=== PATIENT | male | born 1955 | race Caucasian/White ===

== ENCOUNTER 2020-10-08 14:35 | Inpatient (IN) | payer OTHER ==
[2020-10-08] MEDS ORDERED: SODIUM CHLORIDE 2,517 ML IV ONE (15:57)
[2020-10-08 17:00] LABS: INR 0.99 (0.83-1.09); PROTHROMBIN TIME (PATIENT) 12.2 SEC (9.7-13.0)
[2020-10-08 17:04] LABS: ACTIVATED PTT 26.9 SECONDS (25.2-36.5)
[2020-10-08 17:08] LABS: BASO % 0.1 % (0-2.0); EOS % 0.1 % (0-4.5); HEMATOCRIT 49.7 % (35.4-49); HEMOGLOBIN 16.4 GM/dL (11.7-16.9); LYMPH % 16.7 % (8-40); MCH 29.6 pg (25.7-33.7); MCHC 32.9 g/dl (32.0-35.9); MEAN CELL VOLUME 89.8 fl (80-96); MEAN PLT VOLUME 9.8 fl (7.5-11.1); MONO % 17.4 % (3.8-10.2); NEUT % 65.7 % (42.8-82.8); PLATELET COUNT 292 K/MM3 (134-434); RBC 5.54 M/mm3 (4.00-5.60); RDW 14.5 % (11.9-15.9); WHITE BLOOD COUNT 7.3 K/mm3 (4.0-10.0)
[2020-10-08 17:09] LABS: CHLORIDE 95 mmol/L (98-107); SODIUM 130 mmol/L (136-145)
[2020-10-08 17:11] LABS: CALCIUM 9.1 mg/dL (8.5-10.1)
[2020-10-08 17:12] LABS: ALBUMIN 3.4 g/dl (3.4-5.0); ANION GAP 14 MMOL/L (8-16); BLOOD UREA NITROGEN 54.6 mg/dL (7-18); CO2 21 mmol/L (21-32); GLUCOSE,RANDOM 189 mg/dL (74-106)
[2020-10-08 17:15] LABS: CREATININE 3.4 mg/dL (0.55-1.3); SGOT/AST 61 U/L (15-37)
[2020-10-08 17:16] LABS: SGPT/ALT 106 U/L (13-61)
[2020-10-08 17:17] LABS: BILIRUBIN,TOTAL 0.4 mg/dL (0.2-1); TOT PROT 7.5 g/dl (6.4-8.2)
[2020-10-08 17:18] LABS: ALK PHOS 94 U/L (45-117)
[2020-10-08 17:26] LABS: LACTIC ACID 4.2 mmol/L (0.4-2.0)
[2020-10-08] MEDS ORDERED: ACETAMINOPHEN 1000 MG/100 ML VIAL (NON FORMULARY) IVPB ONE (17:50)
[2020-10-08] MEDS ORDERED: FAMOTIDINE 20 MG/50 ML IVPB 20 MG/50 ML MG IVPB ONE ×2 (17:50→19:00)
[2020-10-08] MEDS ORDERED: MAG HYDROX/AL HYDROX/SIMETH 30 ML UNIT-DOSE CUP PO ONE (17:50)
[2020-10-08 18:51] LABS: LACTIC ACID 2.7 mmol/L (0.4-2.0)
[2020-10-08] MEDS ORDERED: ACETAMINOPHEN INJECTION 100 ML IVPB ONE (19:00)
[2020-10-08 19:41] LABS: ANISOCYTOSIS 0; MACROCYTOSIS 0; PLATELET ESTIMATE NORMAL
[2020-10-08] MEDS ORDERED: SODIUM CHLORIDE 1,000 ML IV STA (19:47)
[2020-10-08] MEDS ORDERED: POTASSIUM CHLORIDE 30 MEQ in SODIUM CHLORIDE 1,000 ML IV SCH (23:00)
[2020-10-08] MEDS ORDERED: POTASSIUM CHLORIDE 40 MEQ in SODIUM CHLORIDE 1,000 ML IV SCH (23:00)
[2020-10-08] MEDS ORDERED: SODIUM CHLORIDE 1,000 ML IV SCH (23:00)
[2020-10-08 23:10] LABS: LIPASE 223 U/L (73-393); MAGNESIUM 2.7 mg/dL (1.8-2.4)
[2020-10-09] MEDS ORDERED: ACETAMINOPHEN 1000 MG/100 ML VIAL (NON FORMULARY) IVPB PRN (04:44)
[2020-10-09] MEDS ORDERED: SODIUM CHLORIDE 1,000 ML IV SCH (04:45)
[2020-10-09] MEDS ORDERED: SODIUM CHLORIDE 250 ML IV STA (04:47)
[2020-10-09] MEDS ORDERED: HEPARIN NA (PORCINE) 5,000 UNITS/ML 1ML VIAL ONE (06:20)
[2020-10-09 06:37] LABS: BASO % 0.2 % (0-2.0); EOS % 0.2 % (0-4.5); HEMATOCRIT 40.1 % (35.4-49); HEMOGLOBIN 13.5 GM/dL (11.7-16.9); LYMPH % 18.5 % (8-40); MCH 30.1 pg (25.7-33.7); MCHC 33.8 g/dl (32.0-35.9); MEAN PLT VOLUME 9.2 fl (7.5-11.1); MONO % 19.2 % (3.8-10.2); NEUT % 61.9 % (42.8-82.8); PLATELET COUNT 260 K/MM3 (134-434); RBC 4.51 M/mm3 (4.00-5.60); RDW 14.7 % (11.9-15.9); WHITE BLOOD COUNT 7.7 K/mm3 (4.0-10.0)
[2020-10-09] MEDS: HEPARIN NA (PORCINE) 5,000 UNITS/ML 1ML VIAL SQ SCH ×3 (06:38→21:02)
[2020-10-09 06:59] LABS: BLOOD UREA NITROGEN 72.8 mg/dL (7-18); MAGNESIUM 2.4 mg/dL (1.8-2.4)
[2020-10-09 07:03] LABS: PHOSPHOROUS 6.4 mg/dL (2.5-4.9)
[2020-10-09 07:04] LABS: BILIRUBIN,TOTAL 0.3 mg/dL (0.2-1); TOT PROT 5.9 g/dl (6.4-8.2)
[2020-10-09 07:06] LABS: CREATININE 3.5 mg/dL (0.55-1.3)
[2020-10-09 07:25] LABS: ALBUMIN 2.7 g/dl (3.4-5.0); CALCIUM 7.5 mg/dL (8.5-10.1)
[2020-10-09] MEDS: INSULIN SLIDING SCALE (NOVOLOG) 1 VIAL SQ SCH ×4 (07:27→22:35)
[2020-10-09 10:02] LABS: EPI CELLS >36 /uL (0-25.1); HYALINE CASTS 14 /uL (0-3.1); URINE APPEARANCE TURBID; URINE BACTERIA 91 /uL (0-1359); URINE BILIRUBIN NEGATIVE (NEGATIVE); URINE COLOR YELLOW; URINE GLUCOSE (UA) 2+ (NEGATIVE); URINE KETONE NEGATIVE (NEGATIVE); URINE LEUK ESTERASE TRACE (NEGATIVE); URINE NITRITE NEGATIVE (NEGATIVE); URINE PROTEIN 2+ (NEGATIVE); URINE RBC 19 /uL (0-23.9); URINE UROBILINOGEN 0.2 mg/dL (0.2-1.0); URINE WBC 117 /uL (0-25.8)
[2020-10-09] MEDS ORDERED: POTASSIUM CHLORIDE TABS 20 MEQ TABLET.ER (FP) PO ONE (10:09)
[2020-10-09] MEDS: POTASSIUM CHLORIDE TABS 20 MEQ TABLET.ER (FP) PO SCH ×2 (10:09→21:02)
[2020-10-09 10:59] LABS: PLATELET ESTIMATE NORMAL
[2020-10-09 14:33] LABS: CALCIUM 7.7 mg/dL (8.5-10.1)
[2020-10-09 14:34] LABS: BLOOD UREA NITROGEN 74.6 mg/dL (7-18)
[2020-10-09 14:37] LABS: CREATININE 3.9 mg/dL (0.55-1.3)
[2020-10-09] MEDS: SODIUM CHLORIDE 1,000 ML IV SCH (15:38)
[2020-10-09] MEDS: KCL 10 MEQ IVPB 10 MEQ/100 ML INFUS.BAG IVPB SCH ×2 (15:39→19:02)
[2020-10-09] MEDS: CALCIUM ACETATE 667 MG CAPSULE (FP) PO SCH (17:34)
[2020-10-09] MEDS: ATORVASTATIN CA 40 MG TABLET (FP) PO SCH (21:02)
[2020-10-10] MEDS: HEPARIN NA (PORCINE) 5,000 UNITS/ML 1ML VIAL SQ SCH ×3 (05:17→21:13)
[2020-10-10] MEDS: SODIUM CHLORIDE 1,000 ML IV SCH ×2 (05:19→14:34)
[2020-10-10] MEDS: INSULIN SLIDING SCALE (NOVOLOG) 1 VIAL SQ SCH ×4 (06:00→23:19)
[2020-10-10 08:04] LABS: ALBUMIN 2.7 g/dl (3.4-5.0); CALCIUM 7.8 mg/dL (8.5-10.1); MAGNESIUM 2.6 mg/dL (1.8-2.4)
[2020-10-10 08:08] LABS: CREATININE 4.4 mg/dL (0.55-1.3); PHOSPHOROUS 5.3 mg/dL (2.5-4.9)
[2020-10-10 08:09] LABS: BILIRUBIN,TOTAL 0.3 mg/dL (0.2-1); BLOOD UREA NITROGEN 81.4 mg/dL (7-18); TOT PROT 5.9 g/dl (6.4-8.2)
[2020-10-10] MEDS: CALCIUM ACETATE 667 MG CAPSULE (FP) PO SCH ×3 (09:04→17:06)
[2020-10-10] MEDS: POTASSIUM CHLORIDE TABS 20 MEQ TABLET.ER (FP) PO SCH ×2 (10:28→21:13)
[2020-10-10 10:35] LABS: BASO % 0.3 % (0-2.0); EOS % 0.4 % (0-4.5); HEMATOCRIT 40.2 % (35.4-49); HEMOGLOBIN 13.9 GM/dL (11.7-16.9); LYMPH % 15.4 % (8-40); MCH 30.7 pg (25.7-33.7); MCHC 34.4 g/dl (32.0-35.9); MEAN CELL VOLUME 89.1 fl (80-96); MEAN PLT VOLUME 9.2 fl (7.5-11.1); MONO % 15.6 % (3.8-10.2); NEUT % 68.3 % (42.8-82.8); PLATELET COUNT 283 K/MM3 (134-434); RBC 4.52 M/mm3 (4.00-5.60); RDW 14.6 % (11.9-15.9); WHITE BLOOD COUNT 9.4 K/mm3 (4.0-10.0)
[2020-10-10] MEDS ORDERED: LOPERAMIDE HCL 2 MG CAPSULE PO ONE (12:20)
[2020-10-10 12:39] LABS: ANISOCYTOSIS 0; MACROCYTOSIS 0; PLATELET ESTIMATE NORMAL
[2020-10-10 15:09] LABS: HEP B CORE AB, TOT Negative (Negative)
[2020-10-10] MEDS: SODIUM CHLORIDE 0.45%/POT 20 MEQ/1,000 ML INFUS.BAG IV SCH (18:13)
[2020-10-10] MEDS: SODIUM BICARBONATE 650 MG TABLET PO SCH ×2 (18:15→21:13)
[2020-10-10] MEDS ORDERED: LOPERAMIDE HCL 2 MG CAPSULE PO PRN (20:00)
[2020-10-10] MEDS: ATORVASTATIN CA 40 MG TABLET (FP) PO SCH (21:13)
[2020-10-11] MEDS: SODIUM CHLORIDE 0.45%/POT 20 MEQ/1,000 ML INFUS.BAG IV SCH ×3 (04:08→23:41)
[2020-10-11] MEDS: HEPARIN NA (PORCINE) 5,000 UNITS/ML 1ML VIAL SQ SCH ×3 (06:00→21:08)
[2020-10-11] MEDS: INSULIN SLIDING SCALE (NOVOLOG) 1 VIAL SQ SCH ×4 (06:01→21:09)
[2020-10-11 07:45] LABS: BASO % 0.3 % (0-2.0); EOS % 0.3 % (0-4.5); HEMATOCRIT 39.5 % (35.4-49); HEMOGLOBIN 13.4 GM/dL (11.7-16.9); LYMPH % 13.2 % (8-40); MCH 30.5 pg (25.7-33.7); MEAN CELL VOLUME 89.7 fl (80-96); MEAN PLT VOLUME 8.7 fl (7.5-11.1); MONO % 13.7 % (3.8-10.2); NEUT % 72.5 % (42.8-82.8); PLATELET COUNT 285 K/MM3 (134-434); RDW 14.3 % (11.9-15.9); WHITE BLOOD COUNT 10.6 K/mm3 (4.0-10.0)
[2020-10-11 08:16] LABS: CALCIUM 8.2 mg/dL (8.5-10.1)
[2020-10-11 08:17] LABS: ALBUMIN 2.6 g/dl (3.4-5.0); BLOOD UREA NITROGEN 78.5 mg/dL (7-18); MAGNESIUM 2.6 mg/dL (1.8-2.4)
[2020-10-11 08:20] LABS: CREATININE 3.7 mg/dL (0.55-1.3); PHOSPHOROUS 4.3 mg/dL (2.5-4.9)
[2020-10-11 08:21] LABS: BILIRUBIN,TOTAL 0.4 mg/dL (0.2-1); TOT PROT 5.8 g/dl (6.4-8.2)
[2020-10-11] MEDS: SODIUM BICARBONATE 650 MG TABLET PO SCH ×2 (09:18→21:08)
[2020-10-11] MEDS: CALCIUM ACETATE 667 MG CAPSULE (FP) PO SCH ×3 (09:18→17:37)
[2020-10-11] MEDS: POTASSIUM CHLORIDE TABS 20 MEQ TABLET.ER (FP) PO SCH ×2 (09:18→21:08)
[2020-10-11 11:12] LABS: ANISOCYTOSIS 0; MACROCYTOSIS 0; PLATELET ESTIMATE NORMAL
[2020-10-11 11:57] VITALS: BMI 35.1
[2020-10-11] MEDS: ATORVASTATIN CA 40 MG TABLET (FP) PO SCH (21:08)
[2020-10-12] MEDS: HEPARIN NA (PORCINE) 5,000 UNITS/ML 1ML VIAL SQ SCH ×3 (06:12→21:15)
[2020-10-12] MEDS: INSULIN SLIDING SCALE (NOVOLOG) 1 VIAL SQ SCH ×4 (06:12→21:15)
[2020-10-12 07:55] LABS: BASO % 0.3 % (0-2.0); EOS % 0.8 % (0-4.5); HEMATOCRIT 39.1 % (35.4-49); HEMOGLOBIN 13.1 GM/dL (11.7-16.9); MCH 29.9 pg (25.7-33.7); MCHC 33.6 g/dl (32.0-35.9); MEAN CELL VOLUME 89.1 fl (80-96); MEAN PLT VOLUME 8.7 fl (7.5-11.1); NEUT % 72.9 % (42.8-82.8); PLATELET COUNT 320 K/MM3 (134-434); RDW 14.7 % (11.9-15.9); WHITE BLOOD COUNT 13.4 K/mm3 (4.0-10.0)
[2020-10-12] MEDS: CALCIUM ACETATE 667 MG CAPSULE (FP) PO SCH ×3 (08:12→17:00)
[2020-10-12 08:23] LABS: CALCIUM 8.6 mg/dL (8.5-10.1)
[2020-10-12 08:24] LABS: ALBUMIN 2.7 g/dl (3.4-5.0); BLOOD UREA NITROGEN 64.2 mg/dL (7-18); MAGNESIUM 2.4 mg/dL (1.8-2.4)
[2020-10-12 08:27] LABS: CREATININE 2.7 mg/dL (0.55-1.3)
[2020-10-12 08:28] LABS: BILIRUBIN,TOTAL 0.4 mg/dL (0.2-1)
[2020-10-12] MEDS: SODIUM BICARBONATE 650 MG TABLET PO SCH ×2 (10:27→21:15)
[2020-10-12] MEDS: amLODIPine BESYLATE 5 MG TABLET (FP) PO SCH (10:27)
[2020-10-12] MEDS: POTASSIUM CHLORIDE TABS 20 MEQ TABLET.ER (FP) PO SCH ×2 (10:27→21:15)
[2020-10-12 10:40] LABS: ANISOCYTOSIS 1+; MACROCYTOSIS 0; PLATELET ESTIMATE NORMAL
[2020-10-12] MEDS: SODIUM CHLORIDE 0.45%/POT 20 MEQ/1,000 ML INFUS.BAG IV SCH ×2 (11:20→21:14)
[2020-10-12] MEDS: ATORVASTATIN CA 40 MG TABLET (FP) PO SCH (21:15)
[2020-10-13] MEDS: HEPARIN NA (PORCINE) 5,000 UNITS/ML 1ML VIAL SQ SCH (06:32)
[2020-10-13] MEDS: INSULIN SLIDING SCALE (NOVOLOG) 1 VIAL SQ SCH ×2 (06:32→11:57)
[2020-10-13 08:39] LABS: BASO % 0.3 % (0-2.0); EOS % 1.2 % (0-4.5); HEMATOCRIT 36.5 % (35.4-49); HEMOGLOBIN 12.3 GM/dL (11.7-16.9); LYMPH % 15.5 % (8-40); MCHC 33.7 g/dl (32.0-35.9); MEAN CELL VOLUME 88.9 fl (80-96); MEAN PLT VOLUME 8.9 fl (7.5-11.1); MONO % 11.5 % (3.8-10.2); NEUT % 71.5 % (42.8-82.8); PLATELET COUNT 327 K/MM3 (134-434); RDW 14.7 % (11.9-15.9); WHITE BLOOD COUNT 13.4 K/mm3 (4.0-10.0)
[2020-10-13 08:56] LABS: ALBUMIN 2.6 g/dl (3.4-5.0); BLOOD UREA NITROGEN 51.1 mg/dL (7-18); CALCIUM 8.6 mg/dL (8.5-10.1); MAGNESIUM 1.7 mg/dL (1.8-2.4)
[2020-10-13 08:59] LABS: CREATININE 1.9 mg/dL (0.55-1.3)
[2020-10-13 09:01] LABS: BILIRUBIN,TOTAL 0.3 mg/dL (0.2-1); TOT PROT 5.9 g/dl (6.4-8.2)
[2020-10-13] MEDS: CALCIUM ACETATE 667 MG CAPSULE (FP) PO SCH ×2 (09:05→12:28)
[2020-10-13] MEDS: POTASSIUM CHLORIDE TABS 20 MEQ TABLET.ER (FP) PO SCH (09:05)
[2020-10-13] MEDS: SODIUM BICARBONATE 650 MG TABLET PO SCH (09:05)
[2020-10-13] MEDS: amLODIPine BESYLATE 5 MG TABLET (FP) PO SCH (09:06)
[2020-10-13 09:57] LABS: ANISOCYTOSIS 1+; MACROCYTOSIS 0; PLATELET ESTIMATE NORMAL
[2020-10-13 12:52] LABS: CALCIUM 8.7 mg/dL (8.5-10.1)
[2020-10-13 12:53] LABS: BLOOD UREA NITROGEN 51.3 mg/dL (7-18)
[2020-10-13 12:56] LABS: CREATININE 1.7 mg/dL (0.55-1.3)
[2020-10-13 13:35] VITALS: BP 135/73; PULSE 78; TEMP 98.1
[2020-10-14 11:07] LABS: ANTIGLOMERULAR BASEMENT MEN.AB 3 units (0-20)
[2020-10-14 16:08] LABS: ATYPICAL pANCA <1:20 titer (Neg:<1:20); C-ANCA <1:20 titer (Neg:<1:20)
== END 2020-10-13 14:42 | disposition home or self-care (01) | DRG 391 ==
LOC: JER 14:35 → JERBED 17:45 → J7W 10-09 11:49
PROVIDERS: ADMIT Hospitalist; ATTEND Nurse Practitioner Acute Care
DX: A09 Infectious gastroenteritis and colitis, unspecified (principal); N17.0 Acute kidney failure with tubular necrosis; E87.1 Hypo-osmolality and hyponatremia; K56.7 Ileus, unspecified; E87.2 Acidosis; E86.0 Dehydration; R74.01 Elevation of levels of liver transaminase levels; E87.6 Hypokalemia; E11.9 Type 2 diabetes mellitus without complications; K44.9 Diaphragmatic hernia without obstruction or gangrene; E66.9 Obesity, unspecified; Z68.35 Body mass index [BMI] 35.0-35.9, adult; E78.5 Hyperlipidemia, unspecified; I10 Essential (primary) hypertension; I95.9 Hypotension, unspecified; E86.1 Hypovolemia; K76.0 Fatty (change of) liver, not elsewhere classified
CPT/HCPCS: 36415; 71045-TC-FY; 74176-TC; 76775-TC; 80048; 80053; 81003; 82272; 82540; 82550; 82553; 82570; 82962; 83036; 83516; 83520; 83605; 83690; 83735; 84100; 84300; 84484; 85025; 85610; 85651; 85730; 86038; 86140; 86160; 86225; 86256; 86704; 86706; 86707; 86708; 86709; 86769; 87040; 87045; 87046; 87086; 87186; 87205; 87324; 87340; 87449; 87798; 93005; 93010; 99285-25; C9803; J0131; J1644; J3480; U0003; U0005

== ENCOUNTER 2020-12-30 05:00 | Day surgery (SDC) | payer OTHER ==
[2020-12-27 17:57] VITALS: BMI 33.8
[2020-12-30 12:51] LABS: BASO % 0.8 % (0-2.0); EOS % 2.2 % (0-4.5); HEMATOCRIT 34.2 % (35.4-49); HEMOGLOBIN 11.2 GM/dL (11.7-16.9); LYMPH % 22.4 % (8-40); MCH 29.1 pg (25.7-33.7); MCHC 32.7 g/dl (32.0-35.9); MEAN CELL VOLUME 88.9 fl (80-96); MEAN PLT VOLUME 7.7 fl (7.5-11.1); MONO % 8.1 % (3.8-10.2); NEUT % 66.5 % (42.8-82.8); PLATELET COUNT 437 10^3/uL (134-434); RBC 3.85 M/mm3 (4.00-5.60); RDW 15.7 % (11.9-15.9); WHITE BLOOD COUNT 10.2 K/mm3 (4.0-10.0)
[2020-12-30 13:13] LABS: BLOOD UREA NITROGEN 20.2 mg/dL (7-18); CALCIUM 9.3 mg/dL (8.5-10.1)
[2020-12-30 13:16] LABS: CREATININE 0.9 mg/dL (0.55-1.3)
[2020-12-30] MEDS ORDERED: IOHEXOL 300 MG/ML INFUS..BTL IV ONE (14:58)
[2020-12-30] MEDS ORDERED: ONDANSETRON 4 MG/2 ML VIAL IVPUSH PRN (15:55)
[2020-12-30] MEDS ORDERED: oxyCODONE HCL 5 MG TABLET PO PRN (15:55)
[2020-12-30] MEDS ORDERED: LACTATED RINGERS SOLUTION 1,000 ML IV SCH (16:00)
[2020-12-30] MEDS ORDERED: MEPERIDINE HCL CARPU-JECT 25 MG/1 ML DISP.SYRIN IVPUSH ONE (16:07)
[2020-12-30] MEDS ORDERED: ACETAMINOPHEN 1000 MG/100 ML VIAL (NON FORMULARY) IVPB ONE (16:49)
[2020-12-30 19:31] VITALS: BP 138/78; PULSE 87; TEMP 97.2
== END 2020-12-30 19:24 | disposition home or self-care (01) ==
LOC: JASU-SURG 05:00
PROVIDERS: ATTEND Urology
PROC: 0TB68ZX Excision of Right Ureter, Via Natural or Artificial Opening Endoscopic, Diagnostic (ICD-10-PCS; principal; 2020-12-30 09:30)
PROC: 0T568ZZ Destruction of Right Ureter, Via Natural or Artificial Opening Endoscopic (ICD-10-PCS; 2020-12-30 09:30)
PROC: 0TBB8ZX Excision of Bladder, Via Natural or Artificial Opening Endoscopic, Diagnostic (ICD-10-PCS; 2020-12-30 09:30)
DX: C66.1 Malignant neoplasm of right ureter (principal); D09.0 Carcinoma in situ of bladder
CPT/HCPCS: 36415; 80048; 82962; 85025; 93005; 93010; 94760; J0131

== ENCOUNTER 2022-04-29 12:12 | Inpatient (IN) | payer MEDICARE, OTHER ==
[2022-04-29] MEDS ORDERED: ONDANSETRON 4 MG/2 ML VIAL IVPUSH ONE (16:46)
[2022-04-29] MEDS ORDERED: ONDANSETRON 4 MG/2 ML VIAL ONE (16:57)
[2022-04-29] MEDS ORDERED: SODIUM CHLORIDE 1,000 ML IV SCH (17:00)
[2022-04-29 17:20] LABS: BASO % 0.5 % (0-2.0); EOS % 2.1 % (0-4.5); HEMATOCRIT 45.2 % (35.4-49); HEMOGLOBIN 14.9 GM/dL (11.7-16.9); LYMPH % 22.2 % (8-40); MCH 29.7 pg (25.7-33.7); MCHC 32.9 g/dl (32.0-35.9); MEAN CELL VOLUME 90.4 fl (80-96); MEAN PLT VOLUME 8.5 fl (7.5-11.1); MONO % 8.4 % (3.8-10.2); NEUT % 66.8 % (42.8-82.8); PLATELET COUNT 321 10^3/uL (134-434); RDW 15.1 % (11.9-15.9); WHITE BLOOD COUNT 12.1 K/mm3 (4.0-10.0)
[2022-04-29 17:24] LABS: EPI CELLS 28 /uL (0-25.1); HYALINE CASTS 8 /uL (0-3.1); URINE APPEARANCE CLEAR; URINE BACTERIA 157 /uL (0-1359); URINE BILIRUBIN 1+ (NEGATIVE); URINE COLOR DK YELLOW; URINE GLUCOSE (UA) 2+ (NEGATIVE); URINE KETONE 1+ (NEGATIVE); URINE LEUK ESTERASE NEGATIVE (NEGATIVE); URINE NITRITE NEGATIVE (NEGATIVE); URINE PROTEIN 2+ (NEGATIVE); URINE RBC 19 /uL (0-23.9); URINE WBC 28 /uL (0-25.8)
[2022-04-29 17:41] LABS: CALCIUM 10.3 mg/dL (8.5-10.1)
[2022-04-29 17:42] LABS: ALBUMIN 4.4 g/dl (3.4-5.0); BLOOD UREA NITROGEN 30.1 mg/dL (7-18)
[2022-04-29 17:44] LABS: CREATININE 1.7 mg/dL (0.55-1.3)
[2022-04-29 17:46] LABS: BILIRUBIN,TOTAL 0.3 mg/dL (0.2-1); TOT PROT 8.2 g/dl (6.4-8.2)
[2022-04-30] MEDS ORDERED: SODIUM CHLORIDE 1,000 ML IV SCH (00:15)
[2022-04-30] MEDS ORDERED: CYCLOBENZAPRINE HCL 5 MG TABLET PO PRN (00:19)
[2022-04-30] MEDS ORDERED: LIDOCAINE HCL 2% JELLY 11 ML TP ONE (01:01)
[2022-04-30 02:36] VITALS: BMI 31.9
[2022-04-30] MEDS: LACTATED RINGERS SOLUTION 1,000 ML/1,000 ML INFUS.BAG IV SCH ×2 (03:01→13:34)
[2022-04-30] MEDS ORDERED: INSULIN (NOVOLOG) ASPART 100 UNITS/ML 10ML VIAL ONE (06:05)
[2022-04-30] MEDS: INSULIN SLIDING SCALE (NOVOLOG) 1 VIAL SQ SCH ×4 (06:14→21:33)
[2022-04-30] MEDS: HEPARIN NA (PORCINE) 5,000 UNITS/ML 1ML VIAL SQ SCH ×3 (09:42→21:33)
[2022-04-30] MEDS: TAMSULOSIN HCL 0.4 MG CAP PO SCH (09:43)
[2022-04-30] MEDS: LISINOPRIL 20 MG TABLET PO SCH (09:43)
[2022-04-30] MEDS: FINASTERIDE 5 MG TABLET (FP) PO SCH (09:43)
[2022-04-30 09:59] LABS: BASO % 0.5 % (0-2.0); EOS % 5.6 % (0-4.5); HEMATOCRIT 39.3 % (35.4-49); LYMPH % 31.5 % (8-40); MCH 30.3 pg (25.7-33.7); MCHC 33.1 g/dl (32.0-35.9); MEAN CELL VOLUME 91.4 fl (80-96); MEAN PLT VOLUME 8.6 fl (7.5-11.1); MONO % 7.3 % (3.8-10.2); NEUT % 55.1 % (42.8-82.8); PLATELET COUNT 263 10^3/uL (134-434); RDW 14.8 % (11.9-15.9); WHITE BLOOD COUNT 8.8 K/mm3 (4.0-10.0)
[2022-04-30] MEDS ORDERED: ENOXAPARIN NA (PORCINE) 40 MG/0.4 ML DISP.SYRIN SQ SCH (10:00)
[2022-04-30 10:19] LABS: BLOOD UREA NITROGEN 26.6 mg/dL (7-18)
[2022-04-30 10:20] LABS: ALBUMIN 3.7 g/dl (3.4-5.0); MAGNESIUM 2.1 mg/dL (1.8-2.4)
[2022-04-30 10:22] LABS: CREATININE 1.2 mg/dL (0.55-1.3); PHOSPHOROUS 3.2 mg/dL (2.5-4.9)
[2022-04-30 10:24] LABS: BILIRUBIN,TOTAL 0.3 mg/dL (0.2-1); TOT PROT 6.7 g/dl (6.4-8.2)
[2022-04-30 10:38] LABS: CALCIUM 8.7 mg/dL (8.5-10.1)
[2022-04-30] MEDS ORDERED: ACETAMINOPHEN 1000 MG/100 ML BAG IVPB PRN (16:45)
[2022-04-30] MEDS ORDERED: ATORVASTATIN CA 40 MG TABLET (FP) PO SCH (22:00)
[2022-04-30 22:01] VITALS: RESP 18
[2022-05-01] MEDS: LACTATED RINGERS SOLUTION 1,000 ML/1,000 ML INFUS.BAG IV SCH ×2 (01:11→02:30)
[2022-05-01] MEDS: HEPARIN NA (PORCINE) 5,000 UNITS/ML 1ML VIAL SQ SCH ×2 (06:30→15:04)
[2022-05-01] MEDS: INSULIN SLIDING SCALE (NOVOLOG) 1 VIAL SQ SCH ×3 (06:31→16:54)
[2022-05-01 09:02] LABS: BASO % 0.5 % (0-2.0); HEMATOCRIT 39.3 % (35.4-49); HEMOGLOBIN 13.2 GM/dL (11.7-16.9); LYMPH % 27.5 % (8-40); MCH 30.3 pg (25.7-33.7); MCHC 33.6 g/dl (32.0-35.9); MEAN CELL VOLUME 90.2 fl (80-96); MEAN PLT VOLUME 8.6 fl (7.5-11.1); MONO % 7.4 % (3.8-10.2); NEUT % 58.6 % (42.8-82.8); PLATELET COUNT 268 10^3/uL (134-434); RBC 4.35 M/mm3 (4.00-5.60); RDW 14.3 % (11.9-15.9); WHITE BLOOD COUNT 8.3 K/mm3 (4.0-10.0)
[2022-05-01 09:36] LABS: ALBUMIN 3.8 g/dl (3.4-5.0)
[2022-05-01 09:37] LABS: TOT PROT 6.8 g/dl (6.4-8.2)
[2022-05-01 09:39] LABS: BLOOD UREA NITROGEN 13.4 mg/dL (7-18)
[2022-05-01 09:43] LABS: CALCIUM 9.1 mg/dL (8.5-10.1)
[2022-05-01 09:44] LABS: MAGNESIUM 2.2 mg/dL (1.8-2.4)
[2022-05-01] MEDS: FINASTERIDE 5 MG TABLET (FP) PO SCH (09:44)
[2022-05-01] MEDS: LISINOPRIL 20 MG TABLET PO SCH (09:44)
[2022-05-01] MEDS: TAMSULOSIN HCL 0.4 MG CAP PO SCH (09:44)
[2022-05-01 09:48] LABS: CREATININE 0.9 mg/dL (0.55-1.3)
[2022-05-01 09:49] LABS: BILIRUBIN,TOTAL 0.3 mg/dL (0.2-1); PHOSPHOROUS 2.9 mg/dL (2.5-4.9)
[2022-05-01 14:31] VITALS: BP 119/60; PULSE 67; TEMP 98
== END 2022-05-01 18:25 | disposition home or self-care (01) | DRG 389 ==
LOC: JER 12:12 → JERBED 22:45 → OBSVTOIN 04-30 00:01 → J7W 04-30 02:08
PROVIDERS: ADMIT Internal Medicine; ATTEND Internal Medicine
DX: K56.600 Partial intestinal obstruction, unspecified as to cause (principal); N17.9 Acute kidney failure, unspecified; I10 Essential (primary) hypertension; E78.5 Hyperlipidemia, unspecified; H40.9 Unspecified glaucoma; R11.2 Nausea with vomiting, unspecified; N40.0 Benign prostatic hyperplasia without lower urinary tract symptoms; M62.838 Other muscle spasm; E11.65 Type 2 diabetes mellitus with hyperglycemia
CPT/HCPCS: 0241U-QW; 36415; 74176-TC; 80053; 81003; 82962; 83036; 83605; 83735; 84100; 84443; 84484; 85025; 86850; 86900; 86901; 87086; 93005; 93010; 99285-25; G0378; J1644